=== PATIENT | male | born 1980 | race Caucasian/White ===

== ENCOUNTER 2017-07-05 21:08 | Emergency (ER) | payer SELFPAY ==
[~2017-07-05] VITALS: Ht 182.9 cm; Wt 72.6 kg
[2017-07-05 21:15] VITALS: BP 133/98
[2017-07-05] MEDS ORDERED: PERMETHRIN60 GM TOPIC (21:16)
--- NOTE | 2017-07-05 21:17 | Emergency Room Report ---
History of Present Illness General Chief Complaint: Medical Clearance Source: Patient Present Illness HPI Is a 37-year-old male brought in by police for medical clearance for booking. He complaining of body lice. Has been ongoing for a while now. No other complaint. No fever or chills but no nausea no vomiting. No redness. Denied any drug use. Patient History Past Medical History: see triage record, old chart reviewed Past Surgical History: other Pertinent Family History: none Social History: Denies: drug use Immunizations: other Reviewed Nursing Documentation: PMH: Agreed, PSxH: Agreed Review of Systems Eye: Denies: eye pain, blurred vision ENT: Denies: ear pain, nose congestion, throat swelling Respiratory: Denies: cough, shortness of breath Cardiovascular: Denies: chest pain, palpitations Gastrointestinal: Denies: abdominal pain, diarrhea, nausea, vomiting Musculoskeletal: Denies: back pain, joint pain Skin: Denies: rash Neurological: Denies: headache, numbness Endocrine: Denies: increased thirst, increased urine Hematologic/Lymphatic: Denies: easy bruising All Other Systems: negative except mentioned in HPI Physical Exam vital is unremarkable Sp02 EP Interpretation: reviewed, normal General Appearance: well appearing, no apparent distress, alert Head: normocephalic, atraumatic Eyes: bilateral eye PERRL, bilateral eye EOMI ENT: hearing grossly normal, normal pharynx Neck: full range of motion, supple, no meningismus Respiratory: chest non-tender, lungs clear, normal breath sounds Cardiovascular #1: regular rate, rhythm, no murmur Gastrointestinal: normal bowel sounds, non tender, no mass, no organomegaly, no bruit, non-distended Musculoskeletal: back normal, gait/station normal, normal range of motion Neurologic: alert, oriented x3 Psychiatric: mood/affect normal Skin: warm/dry, other - There are lice in his torso. None in his hair and persaud Medical Decision Making Diagnostic Impression: Primary Impression: Pediculosis corporis ER Course Patient with body lice. No secondary cellulitis. We'll discharge to police Status: improved Disposition: D/C TO LAW ENFORCEMENT IN [facility] Condition: Stable Scripts Permethrin* (ELIMITE*) 60 Gm Cream..g. 1 APPLIC TOPIC ONCE, #60 GM 0 Refills Apply cream from head to toe; leave on for 8-14 hours before washing off with water; may reapply in 1 week if live mites appear. Prov: REKHA VARGHESE M.D. 07/05/17 Additional Instructions: Followup with your Dr. in 7 days as needed. Return if symptom worsen. May repeat treatment if not better in a couple weeks. REKHA VARGHESE M.D. Jul 05, 2017 21:17
== END 2017-07-05 21:15 ==
LOC: EMR 21:14
DX: B85.1 Pediculosis due to Pediculus humanus corporis (principal)
CPT/HCPCS: 99283